=== PATIENT | female | born 1990 | race Caucasian/White ===

== ENCOUNTER → 2016-09-02 | Outpatient (REF) ==
--- NOTE | 2016-09-02 16:26 | REP ---
LUMBAR SPINE, THREE VIEWS: HISTORY: Degenerative disc disease. There is no acute fracture. The intervertebral discs are normal in height. There are 3 mm of grade 1 spondylolisthesis of L5 on S1. IMPRESSION: Degenerative change as described above. Signed by Angelo Velazquez MD 09/02/2016 04:32 P
== END ==
LOC: M SMT 14:05
PROVIDERS: ATTEND Internal Medicine
DX: M43.17 Spondylolisthesis, lumbosacral region (principal)

== ENCOUNTER → 2018-02-18 | Outpatient (REF) | payer OTHER | LOC: M LAB REF 18:36 | DX: J02.9 Acute pharyngitis, unspecified (principal) ==

== ENCOUNTER → 2019-01-01 | Outpatient (REF) | payer OTHER ==
[2019-01-01 18:38] LABS: BASO # 0.1 10^3/uL (0.0-0.2); BASO % 0.9 % (0.0-1.0); EOS # 0.2 10^3/uL (0.0-0.50); EOS % 2.6 % (0.0-3.0); HEMATOCRIT 44.1 % (36.0-47.0); HEMOGLOBIN 14.3 g/dl (12.0-15.5); LYMPH # 2.9 10^3/uL (1.5-6.5); LYMPH % 32.4 % (24.0-44.0); MEAN CORPUSCULAR HEMOGLOBIN 30.3 pg (27.0-33.0); MEAN CORPUSCULAR HGB CONC 32.4 g/dl (32.0-36.5); MEAN CORPUSCULAR VOLUME 93.4 fl (80.0-96.0); MONO # 0.8 10^3/uL (0.0-0.8); MONO % 8.4 % (0.0-5.0); NEUTROPHILS % 55.5 % (36.0-66.0); PLATELET COUNT, AUTOMATED 256 10^3/uL (150-450); RED BLOOD COUNT 4.72 10^6/uL (4.00-5.40)
[2019-01-01 18:52] LABS: FREE T4 0.79 NG/DL (0.76-1.46); THYROID STIMULATING HORMONE 2.56 uIU/ML (0.358-3.740)
== END ==
LOC: M SFHCLERA 14:47
PROVIDERS: ATTEND Nurse Practitioner Family
DX: Z86.2 Personal history of diseases of the blood and blood-forming organs and certain disorders involving the immune mechanism (principal); E03.9 Hypothyroidism, unspecified

== ENCOUNTER 2019-05-27 13:13 | Emergency (ER) | payer OTHER ==
[2019-05-27] MEDS ORDERED: OMEP-221 OR (13:36)
[2019-05-27] MEDS ORDERED: QUET5TAB OR (13:36)
[2019-05-27] MEDS ORDERED: SERT25TA21 OR (13:36)
[2019-05-27] MEDS ORDERED: TOPI100T9 OR (13:36)
[2019-05-27] MEDS ORDERED: CLON0.5T2 OR (13:36)
[2019-05-27] MEDS ORDERED: TRAZ-252 OR (13:36)
[2019-05-27] MEDS ORDERED: ARIP1TAB6 OR (13:36)
[2019-05-27] MEDS ORDERED: HYDR50TA70 OR (13:36)
[2019-05-27 14:29] LABS: HEMATOCRIT 44.2 % (36.0-47.0); HEMOGLOBIN 13.9 g/dl (12.0-15.5); MEAN CORPUSCULAR HGB CONC 31.4 g/dl (32.0-36.5); MEAN CORPUSCULAR VOLUME 92.3 fl (80.0-96.0); PLATELET COUNT, AUTOMATED 245 10^3/uL (150-450); RED BLOOD COUNT 4.79 10^6/uL (4.00-5.40); WHITE BLOOD COUNT 12.9 10^3/uL (4.0-10.0)
[2019-05-27 14:51] LABS: BLOOD UREA NITROGEN 10 MG/DL (7-18); CALCIUM LEVEL 8.4 MG/DL (8.5-10.1); CARBON DIOXIDE LEVEL 23 MEQ/L (21-32); CHLORIDE LEVEL 114 MEQ/L (98-107); CREATININE FOR GFR 0.75 MG/DL (0.55-1.30); GLOMERULAR FILTRATION RATE > 60.0 (>60); GLUCOSE, FASTING 87 MG/DL (70-100); POTASSIUM SERUM 4.5 MEQ/L (3.5-5.1); SODIUM LEVEL 143 MEQ/L (136-145)
[2019-05-27 14:58] LABS: HCG, SERUM QUALITATIVE NEGATIVE (NEGATIVE)
[2019-05-27] MEDS ORDERED: ISOVUE-370 76% 100ML VIAL (Q9967) As Ordered ONE (15:05)
[2019-05-27] MEDS ORDERED: KETOROLAC 30 MG/ML VIAL (J1885) IV ONE (15:15)
[2019-05-27] MEDS ORDERED: CYCL10TA PO (16:21)
[2019-05-27] MEDS ORDERED: IBUP-1022 PO (16:21)
[2019-05-27] MEDS ORDERED: MACR100C43 PO (16:21)
[2019-05-27 16:25] VITALS: BP 102/61
--- NOTE | 2019-05-28 07:30 | REP ---
CT CHEST WITH IV CONTRAST: TECHNIQUE: Axial contrast enhanced images from the thoracic inlet to the upper abdomen using 100 mL Isovue 370 intravenous contrast material with multiplanar reformations. Thoracic aorta is not dilated and is intact. There is no dissection. Heart is normal in size. There is no pleural or pericardial effusion. There is no mediastinal, hilar, or chest wall lymphadenopathy. There is no infiltrate or pneumothorax. The visualized osseous structures are intact. IMPRESSION: No acute pulmonary disease. Electronically Signed by Oswald Cordoba MD 05/28/2019 06:02 P
--- NOTE | 2019-05-28 07:35 | REP ---
CT ABDOMEN AND PELVIS WITH IV CONTRAST: TECHNIQUE: Axial contrast enhanced images from the lung bases to the pubic symphysis using 100 mL Isovue 370 intravenous contrast material with multiplanar reformations. The liver demonstrates a 4 cm enhancing mass inferiorly in the right lobe medial aspect. There is a central hypo-attenuating area. This most likely represents focal nodular hyperplasia. No other liver abnormality is seen. The gallbladder is mildly distended and grossly unremarkable. The spleen demonstrates a 6 mm cystic structure anteriorly. Adrenals are normal. The pancreas is unremarkable. The kidneys are unremarkable with no hydronephrosis. There is no abdominal aortic aneurysm. No adenopathy is seen. There is no free air or free fluid. There is no bowel wall thickening. No pelvic mass is seen. Follicle or collapsing cyst in the right ovary measures 1.9 cm in maximum diameter. Urinary bladder is minimally ascended and grossly unremarkable. There is spondylolysis of the L5 posterior elements. There is minimal anterior spondylolisthesis of L5 on S1. IMPRESSION: No acute post-traumatic abnormality. No acute fracture. Spondylolysis of L5 with minimal anterior grade 1 spondylolisthesis of L5 on S1. 4 cm liver mass with enhancement characteristics most consistent with focal nodular hyperplasia. Recommend further evaluation with MRI of the liver with and without contrast. Electronically Signed by Oswald Cordoba MD 05/28/2019 06:03 P
--- NOTE | 2019-05-29 08:51 | ED PDOC ---
Post-Departure Follow-Up certified letter sent to pt re formal read of ct abdd/p for fu Mitch Stone MD May 29, 2019 08:51
== END 2019-05-27 16:30 | disposition home or self-care (01) ==
LOC: EDBD 13:13 → M ED 13:13
DX: S20.219A Contusion of unspecified front wall of thorax, initial encounter (principal); V43.52XA Car driver injured in collision with other type car in traffic accident, initial encounter; Y92.9 Unspecified place or not applicable; Y93.9 Activity, unspecified; Y99.9 Unspecified external cause status; N39.0 Urinary tract infection, site not specified; F17.200 Nicotine dependence, unspecified, uncomplicated; M43.06 Spondylolysis, lumbar region; M43.17 Spondylolisthesis, lumbosacral region; R16.0 Hepatomegaly, not elsewhere classified; Z79.899 Other long term (current) drug therapy; Z88.0 Allergy status to penicillin; Z88.6 Allergy status to analgesic agent
CPT/HCPCS: 71260; 74177; 80048; 81001; 84703; 85027; 87086; 96374; 99284; J1885; Q9967

== ENCOUNTER → 2019-07-05 | Outpatient (CLI) | payer OTHER ==
[~2019-07-05] MED LIST: ARIP1TAB6 OR; CLON0.5T2 OR; CYCL10TA PO; HYDR50TA70 OR; IBUP-1022 PO; MACR100C43 PO; OMEP-221 OR; PROHANCE 279.3MG/ML 15ML VIAL (A9576) As Ordered ONE; PROHANCE 279.3MG/ML 5ML VIAL (A9576) As Ordered ONE; QUET5TAB OR; SERT25TA21 OR; TOPI100T9 OR; TRAZ-252 OR
--- NOTE | 2019-07-05 12:27 | REP ---
MRI abdomen and liver without and with IV contrast: History: Liver nodule. 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 Incidental finding on CT study abdomen and pelvis May 27, 2019. Technique: Axial and coronal T1 and T2-weighted scans include spin-echo, fast spin echo, diffusion, gradient echo, in and [id number], and dynamically acquired sequential post contrast images. The gadolinium enhancement dose is 17 mL of intravenous ProHance. MRI findings: The mass identified by CT scanning in the quadrate lobe of the liver is again seen on MRI. It is isointense to liver parenchyma on T2 and essentially isointense on T1-weighted precontrast images. It measures 3.5 cm in greatest diameter. There is a somewhat radial spoke wheel pattern of contrast enhancement in the lesion on early arterial phase dynamic postcontrast images. There is a central scar like area of decreased enhancement on initial postcontrast images. This central scar demonstrates enhancement on delayed postcontrast images. There is some T2 hyperintensity in the central scar on precontrast T2-weighted scans as well. No other focal liver lesion is seen. No abnormality is noted in the spleen. Kidneys are unremarkable. No filling defect is seen in the gallbladder. No pancreatic lesion is observed. Impression: Solitary 3.5 cm hypervascular liver mass with delayed enhancement of the central scar. This is felt to be consistent with focal nodular hyperplasia. Followup via sonography could be performed to document stability in size, 6-9 months. Electronically Signed by Crow Jimenez MD 07/05/2019 05:04 P
== END ==
LOC: M RAD 09:33
PROVIDERS: ATTEND Nurse Practitioner Family
DX: K76.89 Other specified diseases of liver (principal)
CPT/HCPCS: 74183; A9576

== ENCOUNTER 2020-02-04 01:15 | Emergency (ER) | payer OTHER ==
[~2020-02-04] VITALS: Ht 149.9 cm; Wt 95.7 kg
[~2020-02-04 01:15] MED LIST changes: +CYCL-707 PO; -CYCL10TA PO; -PROHANCE 279.3MG/ML 15ML VIAL (A9576) As Ordered ONE; -PROHANCE 279.3MG/ML 5ML VIAL (A9576) As Ordered ONE
[2020-02-04] MEDS ORDERED: RISP0.253 (01:30)
[2020-02-04] MEDS ORDERED: PRED20TA PO (02:11)
[2020-02-04] MEDS ORDERED: PROAAER10 INH (02:11)
[2020-02-04] MEDS ORDERED: predniSONE 20 MG TAB PO ONE (02:15)
[2020-02-04 02:28] VITALS: BP 115/74
== END 2020-02-04 02:38 | disposition home or self-care (01) ==
LOC: M ED 01:15
DX: J20.9 Acute bronchitis, unspecified (principal); K21.9 Gastro-esophageal reflux disease without esophagitis; F31.9 Bipolar disorder, unspecified; F17.200 Nicotine dependence, unspecified, uncomplicated; Z79.899 Other long term (current) drug therapy; Z88.0 Allergy status to penicillin; Z88.6 Allergy status to analgesic agent

== ENCOUNTER → 2020-07-23 | Outpatient (REF) | payer OTHER ==
[~2020-07-23] MED LIST changes: +PRED20TA PO; +PROAAER10 INH; +QUET50TA3 OR; -QUET5TAB OR; +RISP0.253
[2020-07-23 18:52] LABS: HEMATOCRIT 39.3 % (36.0-47.0); HEMOGLOBIN 12.8 g/dl (12.0-15.5); MEAN CORPUSCULAR HEMOGLOBIN 29.2 pg (27.0-33.0); MEAN CORPUSCULAR HGB CONC 32.6 g/dl (32.0-36.5); MEAN CORPUSCULAR VOLUME 89.7 fl (80.0-96.0); PLATELET COUNT, AUTOMATED 287 10^3/uL (150-450); RED BLOOD COUNT 4.38 10^6/uL (4.00-5.40); WHITE BLOOD COUNT 10.1 10^3/uL (4.0-10.0)
[2020-07-23 20:00] LABS: HEMOGLOBIN A1c 5.1 %
[2020-07-23 20:10] LABS: HCG, SERUM QUANTITATIVE 6013 MIU/ML; HIV 1&2 SCREEN CENTAUR NEGATIVE (NEGATIVE)
== END ==
LOC: M LAB REF 16:22
PROVIDERS: ATTEND Obstetrics & Gynecology
DX: O36.80X0 Pregnancy with inconclusive fetal viability, not applicable or unspecified (principal)

== ENCOUNTER 2020-08-01 20:48 | Emergency (ER) | payer OTHER ==
[~2020-08-01] VITALS: Ht 149.9 cm; Wt 104.2 kg
[~2020-08-01 20:48] MED LIST changes: -MULTTAB20 PO; -antiemetic PO
[2020-08-01] MEDS ORDERED: antiemetic PO (20:58)
[2020-08-01] MEDS ORDERED: MULTTAB20 PO (20:58)
--- NOTE | 2020-08-01 22:04 | REPVR ---
PROCEDURE INFORMATION: Exam: US First Trimester, Transabdominal Exam date and time: 08/01/2020 9:46 PM Age: 29 years old Clinical indication: Lmp or gestational age (in weeks): 06/19/2020; Other: Vaginal bleeding; ; Additional info: Vaginal bleeding, 6 weeks TECHNIQUE: Imaging protocol: Real-time transabdominal obstetrical ultrasound of the maternal pelvis and a first trimester , less than 14 weeks 0 days, with image documentation. COMPARISON: No relevant prior studies available. FINDINGS: Gestation: The endometrium is mildly heterogeneous and measures 14 mm with no gestational sac. MATERNAL: Uterus: The uterus measures 9.3 cm in its cephalocaudad dimension and 4.1 x 6.0 cm in its AP and lateral dimensions transabdominal. The uterus measures 9.0 cm in its cephalocaudad dimension and 4.8 x 5.3 cm in its AP and lateral dimensions transvaginal. Cervix: Unremarkable. Right adnexa: The right ovary measures 1.6 x 2.5 x 0.9 cm and demonstrates normal arterial and venous blood flow. Left adnexa: The left ovary measures 3.8 x 1.7 x 3.0 cm and demonstrates arterial and venous blood flow and a small complex cyst measuring 2.2 x 1.9 x 2.0 mm. Intraperitoneal space: No intraperitoneal free fluid. IMPRESSION: 1. No intrauterine gestational sac is identified. Findings may reflect recent spontaneous AB. Ectopic is not excluded. Serial beta hCG levels may be of benefit for further evaluation. 2. Small complex left ovarian cyst measuring 2.2 x 1.9 x 2.0 cm. Electronically signed by: Gurmeet Badillo On 08/01/2020 22:04:11 PM
[2020-08-01 22:12] LABS: BASO # 0.1 10^3/uL (0.0-0.2); BASO % 0.6 % (0.0-1.0); EOS # 0.4 10^3/uL (0.0-0.5); HEMATOCRIT 40.4 % (36.0-47.0); HEMOGLOBIN 12.9 g/dl (12.0-15.5); LYMPH # 3.8 10^3/uL (1.5-5.0); LYMPH % 30.8 % (24.0-44.0); MEAN CORPUSCULAR HEMOGLOBIN 28.4 pg (27.0-33.0); MEAN CORPUSCULAR HGB CONC 31.9 g/dl (32.0-36.5); MEAN CORPUSCULAR VOLUME 88.8 fl (80.0-96.0); MONO # 0.7 10^3/uL (0.0-0.8); MONO % 5.6 % (2.0-8.0); NEUTROPHILS # 7.4 10^3/uL (1.5-8.5); NEUTROPHILS % 59.6 % (36.0-66.0); PLATELET COUNT, AUTOMATED 336 10^3/uL (150-450); RED BLOOD COUNT 4.55 10^6/uL (4.00-5.40); WHITE BLOOD COUNT 12.4 10^3/uL (4.0-10.0)
[2020-08-01] MEDS ORDERED: NORCO, ANEXSIA 5/325MG TABLET (HYDROcodone/ACETAMINOPHEN) PO ONE (22:15)
[2020-08-01 22:55] LABS: BLOOD UREA NITROGEN 7 MG/DL (7-18); CALCIUM LEVEL 8.7 MG/DL (8.5-10.1); CARBON DIOXIDE LEVEL 29 MEQ/L (21-32); CHLORIDE LEVEL 107 MEQ/L (98-107); CREATININE FOR GFR 0.54 MG/DL (0.55-1.30); GLOMERULAR FILTRATION RATE > 60.0 (>60); GLUCOSE, FASTING 95 MG/DL (70-100); HCG, SERUM QUANTITATIVE 30401 MIU/ML; SODIUM LEVEL 140 MEQ/L (136-145)
[2020-08-02] MEDS ORDERED: NORCO 5/325MG TABLET (BULK FOR ED) PO ONE
[2020-08-02 00:13] VITALS: BP 116/66
== END 2020-08-02 00:26 | disposition home or self-care (01) ==
LOC: M ED 20:48
DX: O03.9 Complete or unspecified spontaneous abortion without complication (principal); N83.292 Other ovarian cyst, left side; E66.9 Obesity, unspecified; E03.9 Hypothyroidism, unspecified; F41.9 Anxiety disorder, unspecified; F32.9 Major depressive disorder, single episode, unspecified; F17.200 Nicotine dependence, unspecified, uncomplicated; Z79.899 Other long term (current) drug therapy; Z88.0 Allergy status to penicillin; Z88.1 Allergy status to other antibiotic agents; Z88.6 Allergy status to analgesic agent

== ENCOUNTER → 2020-08-01 | Outpatient (REF) | payer OTHER ==
[~2020-08-01] MED LIST changes: +MULTTAB20 PO; +antiemetic PO
== END ==
LOC: M LAB REF 11:24
PROVIDERS: ATTEND Advanced Practice Midwife
DX: O36.80X0 Pregnancy with inconclusive fetal viability, not applicable or unspecified (principal)

== ENCOUNTER → 2020-08-07 | Outpatient (REF) | payer OTHER ==
[~2020-08-07] MED LIST changes: +MULTTAB20 PO; +antiemetic PO
== END ==
LOC: M LAB REF 16:20
PROVIDERS: ATTEND Obstetrics & Gynecology
DX: O02.1 Missed abortion (principal)

== ENCOUNTER 2020-12-06 09:42 | Emergency (ER) | payer OTHER ==
[~2020-12-06] VITALS: Ht 149.9 cm; Wt 100.0 kg
[2020-12-06 10:29] LABS: APPEARANCE, URINE HAZY (CLEAR); BACTERIA, URINE AUTO NEGATIVE (NEGATIVE); BILIRUBIN, URINE AUTO NEGATIVE (NEGATIVE); BLOOD, URINE BLOOD 3+ (NEGATIVE); COLOR, URINE YELLOW (YELLOW); GLUCOSE, URINE (UA) AUTO NEGATIVE (NEGATIVE); KETONE, URINE AUTO NEGATIVE (NEGATIVE); LEUKOCYTE ESTERASE, URINE AUTO NEGATIVE (NEGATIVE); MUCUS, URINE SMALL (NEGATIVE); NITRITE, URINE AUTO NEGATIVE (NEGATIVE); PROTEIN, URINE AUTO NEGATIVE (NEGATIVE); RBC, URINE AUTO 15 /HPF (0-3); SPECIFIC GRAVITY URINE AUTO 1.019 (1.002-1.035); SQUAMOUS EPITHELIAL CELL UR AU 2 /HPF (0-6); WBC, URINE AUTO 2 /HPF (0-3)
[2020-12-06 10:54] LABS: BASO # 0.1 10^3/uL (0.0-0.2); BASO % 0.5 % (0.0-1.0); EOS # 0.3 10^3/uL (0.0-0.5); EOS % 3.2 % (0.0-3.0); HEMATOCRIT 40.9 % (36.0-47.0); HEMOGLOBIN 12.9 g/dl (12.0-15.5); LYMPH # 3.2 10^3/uL (1.5-5.0); LYMPH % 32.6 % (24.0-44.0); MEAN CORPUSCULAR HEMOGLOBIN 26.4 pg (27.0-33.0); MEAN CORPUSCULAR HGB CONC 31.5 g/dl (32.0-36.5); MEAN CORPUSCULAR VOLUME 83.6 fl (80.0-96.0); MONO # 0.7 10^3/uL (0.0-0.8); MONO % 7.3 % (2.0-8.0); NEUTROPHILS # 5.5 10^3/uL (1.5-8.5); NEUTROPHILS % 56.2 % (36.0-66.0); PLATELET COUNT, AUTOMATED 323 10^3/uL (150-450); RED BLOOD COUNT 4.89 10^6/uL (4.00-5.40); WHITE BLOOD COUNT 9.8 10^3/uL (4.0-10.0)
[2020-12-06] MEDS ORDERED: ACETAMINOPHEN TAB 650MG DOSE (2X325MG) PO ONE (11:10)
--- NOTE | 2020-12-06 11:30 | REP ---
INDICATION: VAGINAL BLEEDING. COMPARISON: None. TECHNIQUE: Transabdominal and transvaginal scanning. FINDINGS: Scanning demonstrates a normal-sized empty uterus with dimensions of 6.8 x 4.1 x 5.2 cm. Endometrial stripe is 0.8 cm thick. No intrauterine gestational sac is seen. No free fluid is noted. Normal ovaries are seen bilaterally. Right ovarian dimensions are 2.3 x 2.0 x 2.0 cm. Left ovary measures 2.8 x 1.6 x 2.3 cm. No adnexal mass or cyst is seen. IMPRESSION: Morphologically normal study. Empty uterus. Clinical and possibly sonographic follow-up is advised. Nonspecific findings in early . <Electronically signed by Roni Jimenez > 12/06/20 112
[2020-12-06 12:22] LABS: GC DNA AMPLIFICATION NEGATIVE (NEGATIVE)
[2020-12-06 13:15] VITALS: BP 120/78
== END 2020-12-06 13:16 | disposition home or self-care (01) ==
LOC: M ED 09:42
DX: O20.8 Other hemorrhage in early pregnancy (principal); Z87.59 Personal history of other complications of pregnancy, childbirth and the puerperium; O99.330 Smoking (tobacco) complicating pregnancy, unspecified trimester; Z79.899 Other long term (current) drug therapy; Z88.0 Allergy status to penicillin; Z88.6 Allergy status to analgesic agent

== ENCOUNTER → 2020-12-19 | Outpatient (CLI) | payer OTHER | LOC: M PLALAB 12:15 | PROVIDERS: ATTEND Obstetrics & Gynecology | DX: N96 Recurrent pregnancy loss (principal) ==

== ENCOUNTER 2021-01-29 18:47 | Emergency (ER) | payer OTHER ==
[~2021-01-29] VITALS: Ht 149.9 cm; Wt 101.1 kg
[~2021-01-29 18:47] MED LIST changes: -QUET50TA3 OR; +QUET50TA4 OR
[2021-01-29 18:48] VITALS: BP 120/71
== END 2021-01-29 19:09 | disposition left against medical advice (07) ==
LOC: M ED 18:47
DX: Z53.21 Procedure and treatment not carried out due to patient leaving prior to being seen by health care provider (principal)

== ENCOUNTER → 2021-01-30 | Outpatient (REF) | payer OTHER | LOC: M LAB REF 11:55 | PROVIDERS: ATTEND Physician Assistant Medical | DX: J06.9 Acute upper respiratory infection, unspecified (principal); J02.9 Acute pharyngitis, unspecified; Z20.828 Contact with and (suspected) exposure to other viral communicable diseases ==

== ENCOUNTER → 2021-07-02 | Outpatient (CLI) | payer OTHER ==
[~2021-07-02] MED LIST changes: -OMEP-221 OR; +OMEP40CA5 OR
[2021-07-02 17:24] LABS: HEMATOCRIT 40.2 % (36.0-47.0); HEMOGLOBIN 13.1 g/dl (12.0-15.5); MEAN CORPUSCULAR HEMOGLOBIN 28.9 pg (27.0-33.0); MEAN CORPUSCULAR HGB CONC 32.6 g/dl (32.0-36.5); MEAN CORPUSCULAR VOLUME 88.7 fl (80.0-96.0); PLATELET COUNT, AUTOMATED 284 10^3/uL (150-450); RED BLOOD COUNT 4.53 10^6/uL (4.00-5.40); WHITE BLOOD COUNT 14.2 10^3/uL (4.0-10.0)
[2021-07-02 18:10] LABS: FREE T4 1.11 NG/DL (0.76-1.46)
[2021-07-02 19:11] LABS: GC DNA AMPLIFICATION NEGATIVE (NEGATIVE); HEMOGLOBIN A1c 5.1 %
[2021-07-02 19:55] LABS: HEPATITIS C VIRUS ABY INDEX 0.1 INDEX (<0.8)
[2021-07-02 19:56] LABS: HIV 1&2 SCREEN CENTAUR NEGATIVE (NEGATIVE)
== END ==
LOC: M PLALAB 14:39
PROVIDERS: ATTEND Advanced Practice Midwife
DX: Z34.80 Encounter for supervision of other normal pregnancy, unspecified trimester (principal); Z3A.00 Weeks of gestation of pregnancy not specified

== ENCOUNTER → 2021-07-16 | Outpatient (CLI) | payer OTHER | LOC: M WHC 11:02 | PROVIDERS: ATTEND Advanced Practice Midwife | DX: Z36.89 Encounter for other specified antenatal screening (principal); Z3A.00 Weeks of gestation of pregnancy not specified ==

== ENCOUNTER → 2021-08-12 | Outpatient (CLI) | payer OTHER | LOC: M WHC 09:13 | PROVIDERS: ATTEND Obstetrics & Gynecology | DX: Z34.92 Encounter for supervision of normal pregnancy, unspecified, second trimester (principal); Z36.89 Encounter for other specified antenatal screening; Z3A.19 19 weeks gestation of pregnancy ==

== ENCOUNTER 2021-09-15 18:47 | Outpatient (CLI) | payer OTHER ==
[~2021-09-15] VITALS: Ht 149.9 cm; Wt 102.1 kg
[2021-09-15 19:06] VITALS: BP 109/57
[2021-09-15] MEDS ORDERED: HOME MED LIST COMPLETE! XX SCH (19:20)
[2021-09-15 19:45] VITALS: BP 106/57
== END 2021-09-15 20:06 | disposition home or self-care (01) ==
LOC: M LDO 18:47
PROVIDERS: ATTEND Specialist
DX: O26.892 Other specified pregnancy related conditions, second trimester (principal); N89.8 Other specified noninflammatory disorders of vagina; Z3A.23 23 weeks gestation of pregnancy

== ENCOUNTER → 2021-09-18 | Outpatient (REF) | payer OTHER | LOC: M PLALAB 12:14 | PROVIDERS: ATTEND Advanced Practice Midwife | DX: Z34.92 Encounter for supervision of normal pregnancy, unspecified, second trimester (principal); Z3A.00 Weeks of gestation of pregnancy not specified; Z53.8 Procedure and treatment not carried out for other reasons ==

== ENCOUNTER → 2021-09-30 | Outpatient (CLI) | payer OTHER ==
[2021-09-30 14:18] LABS: HEMATOCRIT 35.6 % (36.0-47.0); HEMOGLOBIN 11.7 g/dl (12.0-15.5); MEAN CORPUSCULAR HEMOGLOBIN 30.2 pg (27.0-33.0); MEAN CORPUSCULAR HGB CONC 32.9 g/dl (32.0-36.5); PLATELET COUNT, AUTOMATED 296 10^3/uL (150-450); RED BLOOD COUNT 3.87 10^6/uL (4.00-5.40); WHITE BLOOD COUNT 13.9 10^3/uL (4.0-10.0)
== END ==
LOC: M PLALAB 09:37
PROVIDERS: ATTEND Advanced Practice Midwife
DX: Z34.92 Encounter for supervision of normal pregnancy, unspecified, second trimester (principal); Z36.89 Encounter for other specified antenatal screening

== ENCOUNTER → 2021-12-10 | Outpatient (REF) | payer OTHER | LOC: M SFHCWAGY 16:50 | PROVIDERS: ATTEND Advanced Practice Midwife | DX: O99.333 Smoking (tobacco) complicating pregnancy, third trimester (principal); F17.200 Nicotine dependence, unspecified, uncomplicated; Z36.85 Encounter for antenatal screening for Streptococcus B ==

== ENCOUNTER 2021-12-27 03:11 | Outpatient (CLI) | payer OTHER ==
[~2021-12-27] VITALS: Ht 149.9 cm; Wt 103.0 kg
[2021-12-27 03:44] VITALS: BP 114/74
== END 2021-12-27 08:11 | disposition home or self-care (01) ==
LOC: M LDO 03:11
PROVIDERS: ATTEND Obstetrics & Gynecology
DX: O47.1 False labor at or after 37 completed weeks of gestation (principal); Z3A.38 38 weeks gestation of pregnancy

== ENCOUNTER 2022-01-09 22:23 | Inpatient (IN) | payer OTHER ==
[~2022-01-09] VITALS: Ht 149.9 cm; Wt 104.9 kg
[2022-01-09] MEDS ORDERED: LACTATED RINGER'S 1000 ML IV STA (22:30)
[2022-01-09] MEDS ORDERED: LR 1,000 ML IV SCH (22:30)
[2022-01-09] MEDS ORDERED: miSOPROStol 50MCG 1/2 TABLET PO PRN (22:30)
[2022-01-09 22:45] VITALS: BP 120/81
[2022-01-10] VITALS (17 sets, daily range): BP systolic 112–147; BP diastolic 58–92
[2022-01-10 00:24] LABS: HEMATOCRIT 32.7 % (36.0-47.0); HEMOGLOBIN 10.7 g/dl (12.0-15.5); MEAN CORPUSCULAR HEMOGLOBIN 27.2 pg (27.0-33.0); MEAN CORPUSCULAR HGB CONC 32.7 g/dl (32.0-36.5); MEAN CORPUSCULAR VOLUME 83.2 fl (80.0-96.0); PLATELET COUNT, AUTOMATED 307 10^3/uL (150-450); RED BLOOD COUNT 3.93 10^6/uL (4.00-5.40); WHITE BLOOD COUNT 14.6 10^3/uL (4.0-10.0)
[2022-01-10] MEDS ORDERED: ePHEDrine SULFATE 25 MG/5 ML(5MG/ML) SYRINGE IVP PRN ×2 (01:45→02:10)
[2022-01-10] MEDS ORDERED: NALOXONE INJ 0.4MG/1ML VIAL (J2310 PER 1MG) IV PRN ×2 (01:45→02:10)
[2022-01-10] MEDS ORDERED: EPIDURAL/PCA KEYS XX PRN ×2 (01:45→02:10)
[2022-01-10] MEDS ORDERED: LR 500 ML IV PRN ×2 (01:45→02:10)
[2022-01-10] MEDS ORDERED: ONDANSETRON 4MG 2ML VIAL IV PRN ×2 (01:45→02:10)
[2022-01-10] MEDS ORDERED: diphenhydrAMINE 50MG/ML VIAL (J1200) IV PRN ×2 (01:45→02:10)
[2022-01-10] MEDS ORDERED: REFLB XX ONE (01:46)
[2022-01-10] MEDS ORDERED: FENTANYL 2MCG/ML ROPIVACAINE 0.2% IN 0.9% NACL 100ML IVBAG As Ordered ONE (01:47)
[2022-01-10] MEDS ORDERED: FENTANYL/ROPIVACAINE/NACL BAG 100 ML EPIDURAL SCH (02:10)
[2022-01-10] MEDS ORDERED: OXYTOCIN 30 UNITS IN 0.9% NaCl 500ML IV BAG (J2590) As Ordered ONE (02:44)
[2022-01-10] MEDS ORDERED: ACETAMINOPHEN TAB 650MG DOSE (2X325MG) PO PRN (03:50)
[2022-01-10] MEDS ORDERED: IBUPROFEN 600MG TAB PO PRN (03:50)
[2022-01-10] MEDS ORDERED: RHOGAM 300 MCG (1500 IU) INJ (J2790) IM SCH (03:50)
[2022-01-10] MEDS ORDERED: IBUPROFEN 800 MG TAB PO PRN (03:50)
[2022-01-10] MEDS ORDERED: DIBUCAINE 1% OINTMENT 30GM TOP PRN (03:50)
[2022-01-10] MEDS ORDERED: OXYTOCIN DRIP 30 UNITS in IV 1 EA IV SCH (03:50)
[2022-01-10] MEDS ORDERED: METHYLERGONOVINE MALEATE 0.2 MG TAB PO PRN (03:50)
[2022-01-10] MEDS ORDERED: DOCUSATE SODIUM 100MG CAPSULE PO PRN (03:50)
[2022-01-10 03:56] LABS: CORD GAS ABE A -4.1; CORD GAS HCO3 A 22.4 MEQ/L; CORD GAS HCO3 V 23.1 MEQ/L; CORD GAS O2 SAT A 59.9 %; CORD GAS O2 SAT V 51.9 %; CORD GAS PCO2 V 49.8 mmHg; CORD GAS PH A 7.305 UNITS; CORD GAS PH V 7.285 UNITS; CORD GAS PO2 A 22.7 mmHg; CORD GAS SBC A 20.1 MEQ/L; CORD GAS TCO2 A 23.8 MEQ/L; CORD GAS TCO2 V 24.7 MEQ/L
[2022-01-10] MEDS: ACETAMINOPHEN 500 MG TAB PO PRN ×2 (07:49→15:30)
[2022-01-10] MEDS ORDERED: PRENATAL VITAMINS CHEWABLE TABLET PO SCH (09:00)
[2022-01-10] MEDS ORDERED: HOME MED LIST COMPLETE! XX SCH (17:15)
[2022-01-12] MEDS ORDERED: MEASLES,MUMPS,RUBELLA VACCINE INJ (MMR-II) (90707) SC.IMMUN ONE (09:00)
== END 2022-01-10 23:15 | disposition home or self-care (01) | DRG 560 ==
LOC: M LDI 22:23 → M OBS 01-10 06:09
PROVIDERS: ADMIT Obstetrics & Gynecology; ATTEND Obstetrics & Gynecology
PROC: 3E0P7GC Introduction of Other Therapeutic Substance into Female Reproductive, Via Natural or Artificial Opening (ICD-10-PCS; 2022-01-09)
PROC: 10E0XZZ Delivery of Products of Conception, External Approach (ICD-10-PCS; principal; 2022-01-10)
DX: O69.1XX0 Labor and delivery complicated by cord around neck, with compression, not applicable or unspecified (principal); Z3A.40 40 weeks gestation of pregnancy; Z37.0 Single live birth

== ENCOUNTER → 2022-06-30 | Outpatient (CLI) | payer OTHER ==
[2022-06-30 13:35] LABS: HEMATOCRIT 38.5 % (36.0-47.0); HEMOGLOBIN 12.1 g/dl (12.0-15.5); MEAN CORPUSCULAR HGB CONC 31.4 g/dl (32.0-36.5); MEAN CORPUSCULAR VOLUME 82.6 fl (80.0-96.0); PLATELET COUNT, AUTOMATED 265 10^3/uL (150-450); RED BLOOD COUNT 4.66 10^6/uL (4.00-5.40); WHITE BLOOD COUNT 7.5 10^3/uL (4.0-10.0)
[2022-06-30 16:06] LABS: GC DNA AMPLIFICATION NEGATIVE (NEGATIVE)
[2022-06-30 19:53] LABS: HEPATITIS C VIRUS ABY INDEX < 0.0 INDEX (<0.8); HIV 1&2 SCREEN CENTAUR NEGATIVE (NEGATIVE)
== END ==
LOC: M PLALAB 10:00
PROVIDERS: ATTEND Advanced Practice Midwife
DX: Z34.81 Encounter for supervision of other normal pregnancy, first trimester (principal)

== ENCOUNTER → 2022-08-18 | Outpatient (CLI) | payer OTHER | LOC: M WHC 10:17 | PROVIDERS: ATTEND Specialist | DX: O32.2XX0 Maternal care for transverse and oblique lie, not applicable or unspecified (principal); Z36.89 Encounter for other specified antenatal screening; Z3A.18 18 weeks gestation of pregnancy ==

== ENCOUNTER → 2022-11-10 | Outpatient (CLI) | payer OTHER ==
[2022-11-10 17:04] LABS: HEMATOCRIT 35.1 % (36.0-47.0); HEMOGLOBIN 11.4 g/dl (12.0-15.5); MEAN CORPUSCULAR HEMOGLOBIN 28.6 pg (27.0-33.0); MEAN CORPUSCULAR HGB CONC 32.5 g/dl (32.0-36.5); MEAN CORPUSCULAR VOLUME 88.2 fl (80.0-96.0); PLATELET COUNT, AUTOMATED 309 10^3/uL (150-450); RED BLOOD COUNT 3.98 10^6/uL (4.00-5.40); WHITE BLOOD COUNT 16.1 10^3/uL (4.0-10.0)
[2022-11-10 18:58] LABS: GC DNA AMPLIFICATION NEGATIVE (NEGATIVE)
== END ==
LOC: M PLALAB 13:14
PROVIDERS: ATTEND Obstetrics & Gynecology
DX: Z34.92 Encounter for supervision of normal pregnancy, unspecified, second trimester (principal)

== ENCOUNTER 2023-01-09 13:43 | Outpatient (CLI) | payer OTHER ==
[~2023-01-09] VITALS: Ht 149.9 cm; Wt 102.9 kg
[2023-01-09 14:06] VITALS: BP 109/61
[2023-01-09] MEDS ORDERED: HOME MED LIST COMPLETE! XX SCH (14:10)
[2023-01-09] MEDS ORDERED: LR 1,000 ML IV SCH (14:40)
[2023-01-09] MEDS ORDERED: OXYTOCIN DRIP 30 UNITS in IV 1 EA IV SCH (14:40)
[2023-01-11] MEDS ORDERED: ACET-683 PO (17:55)
== END 2023-01-09 15:17 | disposition home or self-care (01) ==
LOC: M LDO 13:43
PROVIDERS: ATTEND Obstetrics & Gynecology
DX: O47.1 False labor at or after 37 completed weeks of gestation (principal); Z3A.39 39 weeks gestation of pregnancy; O99.333 Smoking (tobacco) complicating pregnancy, third trimester; F17.210 Nicotine dependence, cigarettes, uncomplicated
CPT/HCPCS: 59025; 96374; G0463

== ENCOUNTER → 2023-07-14 | Outpatient (CLI) | payer OTHER ==
[~2023-07-14] MED LIST changes: +ACET-683 PO
== END ==
LOC: M WHC 11:19
PROVIDERS: ATTEND Advanced Practice Midwife
DX: Z34.82 Encounter for supervision of other normal pregnancy, second trimester (principal)

== ENCOUNTER 2023-08-31 15:26 | Emergency (ER) | payer OTHER | END 2023-08-31 18:20 | disposition admitted as inpatient to this hospital (09) | LOC: M ED 15:26 | DX: Z53.21 Procedure and treatment not carried out due to patient leaving prior to being seen by health care provider (principal) ==

== ENCOUNTER 2023-08-31 15:32 | Outpatient (CLI) | payer OTHER ==
[~2023-08-31] VITALS: Ht 149.9 cm; Wt 94.6 kg
[2023-08-31 15:45] VITALS: BP 110/60
[2023-08-31 18:25] VITALS: BP 107/56
== END 2023-08-31 19:01 | disposition home or self-care (01) ==
LOC: M LDO 15:32
PROVIDERS: ATTEND Obstetrics & Gynecology
DX: Z53.21 Procedure and treatment not carried out due to patient leaving prior to being seen by health care provider (principal)
CPT/HCPCS: 59025; G0463

== ENCOUNTER → 2023-09-12 | Outpatient (CLI) | payer OTHER ==
[2023-09-12 13:24] LABS: HEMOGLOBIN 11.3 g/dl (12.0-15.5); MEAN CORPUSCULAR HEMOGLOBIN 28.5 pg (27.0-33.0); MEAN CORPUSCULAR HGB CONC 32.3 g/dl (32.0-36.5); MEAN CORPUSCULAR VOLUME 88.4 fl (80.0-96.0); PLATELET COUNT, AUTOMATED 295 10^3/uL (150-450); RED BLOOD COUNT 3.96 10^6/uL (4.00-5.40); WHITE BLOOD COUNT 9.3 10^3/uL (4.0-10.0)
[2023-09-12 13:49] LABS: FREE T4 0.97 NG/DL (0.89-1.76); THYROID STIMULATING HORMONE 3.682 uIU/ML (0.55-4.78)
[2023-09-12 14:20] LABS: HIV 1&2 SCREEN NEGATIVE (NEGATIVE)
[2023-09-12 14:28] LABS: HEPATITIS C VIRUS ABY INDEX < 0.02 INDEX (<0.8)
[2023-09-12 14:44] LABS: GC DNA AMPLIFICATION NEGATIVE (NEGATIVE)
== END ==
LOC: M PLALAB 09:20
PROVIDERS: ATTEND Advanced Practice Midwife
DX: Z34.82 Encounter for supervision of other normal pregnancy, second trimester (principal)

== ENCOUNTER → 2023-10-07 | Outpatient (CLI) | payer OTHER ==
[2023-10-07 13:13] LABS: HEMATOCRIT 34.7 % (36.0-47.0); HEMOGLOBIN 11.2 g/dl (12.0-15.5); MEAN CORPUSCULAR HEMOGLOBIN 28.6 pg (27.0-33.0); MEAN CORPUSCULAR HGB CONC 32.3 g/dl (32.0-36.5); MEAN CORPUSCULAR VOLUME 88.5 fl (80.0-96.0); PLATELET COUNT, AUTOMATED 298 10^3/uL (150-450); RED BLOOD COUNT 3.92 10^6/uL (4.00-5.40); WHITE BLOOD COUNT 9.9 10^3/uL (4.0-10.0)
[2023-10-07 13:38] LABS: THYROID STIMULATING HORMONE 3.547 uIU/ML (0.55-4.78)
[2023-10-07 14:04] LABS: GC DNA AMPLIFICATION NEGATIVE (NEGATIVE)
== END ==
LOC: M PLALAB 09:12
PROVIDERS: ATTEND Obstetrics & Gynecology
DX: O99.333 Smoking (tobacco) complicating pregnancy, third trimester (principal); Z3A.30 30 weeks gestation of pregnancy

== ENCOUNTER 2023-11-21 22:20 | Inpatient (IN) | payer OTHER ==
[~2023-11-21] VITALS: Ht 149.9 cm; Wt 98.8 kg
[2023-11-21 22:37] VITALS: BP 122/68
[2023-11-21] MEDS ORDERED: HOME MED LIST COMPLETE! XX SCH (22:40)
[2023-11-22] VITALS (21 sets, daily range): BP systolic 116–196; BP diastolic 56–108; O2SAT 98
[2023-11-22] MEDS: VANCOMYCIN HCL 1,000 MG, VIAL MATE ADAPTER 1 EACH in NS 250 ML IV SCH (00:22)
[2023-11-22] MEDS: LACTATED RINGER'S 1000 ML IV STA (00:22)
[2023-11-22 00:33] LABS: HEMATOCRIT 33.5 % (36.0-47.0); HEMOGLOBIN 11.1 g/dl (12.0-15.5); MEAN CORPUSCULAR HEMOGLOBIN 27.5 pg (27.0-33.0); MEAN CORPUSCULAR HGB CONC 33.1 g/dl (32.0-36.5); MEAN CORPUSCULAR VOLUME 83.1 fl (80.0-96.0); PLATELET COUNT, AUTOMATED 265 10^3/uL (150-450); RED BLOOD COUNT 4.03 10^6/uL (4.00-5.40); WHITE BLOOD COUNT 12.7 10^3/uL (4.0-10.0)
[2023-11-22] MEDS ORDERED: FENTANYL 2MCG/ML ROPIVACAINE 0.2% IN 0.9% NACL 100ML IVBAG As Ordered ONE (01:19)
[2023-11-22] MEDS ORDERED: EPIDURAL/PCA KEYS XX PRN (01:25)
[2023-11-22] MEDS ORDERED: diphenhydrAMINE 50MG/ML VIAL IV PRN (01:25)
[2023-11-22] MEDS ORDERED: LR 500 ML IV PRN (01:25)
[2023-11-22] MEDS ORDERED: NALOXONE INJ 0.4MG/1ML VIAL IV PRN (01:25)
[2023-11-22] MEDS ORDERED: ONDANSETRON 4MG 2ML VIAL IV PRN (01:25)
[2023-11-22] MEDS ORDERED: ePHEDrine SULFATE 25 MG/5 ML(5MG/ML) SYRINGE IVP PRN (01:25)
[2023-11-22] MEDS: FENTANYL/ROPIVACAINE/NACL BAG 100 ML EPIDURAL SCH (01:59)
[2023-11-22] MEDS ORDERED: OXYTOCIN INJ 10UNITS/ML 1ML VIAL IM PRN (02:30)
[2023-11-22] MEDS ORDERED: METHYLERGONOVINE MALEATE 0.2MG/ML 1ML VIAL IM PRN (02:30)
[2023-11-22] MEDS ORDERED: LIDOCAINE 1% MDV 20ML VIAL INFIL PRN (02:30)
[2023-11-22] MEDS ORDERED: CARBOPROST TROMETHAMINE 250 MCG/ML AMP IM PRN (02:30)
[2023-11-22] MEDS ORDERED: OXYTOCIN DRIP 30 UNITS in IV 1 EA IV PRN (02:30)
[2023-11-22] MEDS ORDERED: TRANEXAMIC ACID INJection 1,000 MG in NS 100 ML IV PRN (02:30)
[2023-11-22] MEDS ORDERED: ANUSOL HC CREAM 30GM TOP PRN (03:35)
[2023-11-22] MEDS ORDERED: MOM 30ML SUSPENSION UDC PO PRN (03:35)
[2023-11-22] MEDS ORDERED: DOCUSATE SODIUM 100MG CAPSULE PO PRN (03:35)
[2023-11-22] MEDS ORDERED: RHO(D) IMMUNE GLOBULIN/MALTOSE 500MCG(2500IU)/2.2ML VIAL (WINRHO) IM SCH (03:35)
[2023-11-22] MEDS ORDERED: DIBUCAINE 1% OINTMENT 30GM TOP PRN (03:35)
[2023-11-22 03:38] LABS: CORD GAS ABE A -6.4; CORD GAS ABE V -5.4; CORD GAS HCO3 A 22.5 MMOL/L; CORD GAS HCO3 V 21.9 MMOL/L; CORD GAS O2 SAT A 17.2 %; CORD GAS O2 SAT V 41.9 %; CORD GAS PCO2 V 48.5 mmHg; CORD GAS PH A 7.207 UNITS; CORD GAS PH V 7.272 UNITS; CORD GAS SBC A 17.4 MMOL/L; CORD GAS SBC V 18.7 MMOL/L; CORD GAS TCO2 A 24.3 MMOL/L; CORD GAS TCO2 V 23.4 MMOL/L
[2023-11-22] MEDS: OXYTOCIN DRIP 30 UNITS in IV 1 EA IV PRN (03:56)
[2023-11-22 04:11] LABS: HEPATITIS C VIRUS ABY INDEX < 0.02 INDEX (<0.8)
[2023-11-22] MEDS: ACETAMINOPHEN 500 MG TAB PO PRN (04:16)
[2023-11-22] MEDS: PRENATAL VITAMINS CHEWABLE TABLET PO SCH (09:18)
[2023-11-22] MEDS: ACETAMINOPHEN TAB 650MG DOSE (2X325MG) PO PRN (11:47)
[2023-11-23 06:00] VITALS: BP 96/53; O2SAT 98
[2023-11-23] MEDS ORDERED: ACET-683 PO (09:33)
[2023-11-23] MEDS: medroxyPROGESTERone ACET IM SUSP 150 MG/ML VIAL IM ONE (13:38)
[2023-11-23] MEDS: MEASLES,MUMPS,RUBELLA VACCINE INJ (MMR-II) SC.IMMUN ONE (13:38)
[2023-11-24] MEDS ORDERED: MEASLES,MUMPS,RUBELLA VACCINE INJ (MMR-II) SC.IMMUN ONE (09:00)
== END 2023-11-23 13:55 | disposition home or self-care (01) | DRG 560 ==
LOC: M LDO 22:20 → M LDI 11-22 00:55 → M OBS 11-22 06:45
PROVIDERS: ADMIT Advanced Practice Midwife; ATTEND Advanced Practice Midwife
PROC: 10E0XZZ Delivery of Products of Conception, External Approach (ICD-10-PCS; principal; 2023-11-22)
DX: O99.334 Smoking (tobacco) complicating childbirth (principal); F17.200 Nicotine dependence, unspecified, uncomplicated; Z37.0 Single live birth; Z3A.37 37 weeks gestation of pregnancy; Z88.0 Allergy status to penicillin; Z88.8 Allergy status to other drugs, medicaments and biological substances; O76 Abnormality in fetal heart rate and rhythm complicating labor and delivery

== ENCOUNTER → 2024-02-19 | Outpatient (REF) | payer OTHER, MEDICAID | LOC: M LAB REF 17:22 | PROVIDERS: ATTEND Physician Assistant Medical | DX: B34.9 Viral infection, unspecified (principal) ==

== ENCOUNTER 2024-04-10 04:55 | Emergency (ER) | payer OTHER | END 2024-04-10 05:05 | disposition left against medical advice (07) | LOC: EDBD 04:55 → M ED 04:55 | DX: Z53.21 Procedure and treatment not carried out due to patient leaving prior to being seen by health care provider (principal) ==

== ENCOUNTER 2024-08-03 17:40 | Emergency (ER) | payer OTHER ==
[~2024-08-03] VITALS: Ht 149.9 cm; Wt 97.1 kg
[2024-08-03] MEDS ORDERED: BENZ1LOZ9 PO (20:05)
[2024-08-03] MEDS: CEPACOL LOZENGE MT ONE (20:10)
[2024-08-03 20:18] VITALS: BP 121/68; TEMP 98.3; O2SAT 100
== END 2024-08-03 20:19 | disposition home or self-care (01) ==
LOC: M ED 17:40
DX: J02.9 Acute pharyngitis, unspecified (principal); K21.9 Gastro-esophageal reflux disease without esophagitis; F17.200 Nicotine dependence, unspecified, uncomplicated; Z88.0 Allergy status to penicillin; Z88.1 Allergy status to other antibiotic agents; Z88.6 Allergy status to analgesic agent; Z79.1 Long term (current) use of non-steroidal anti-inflammatories (NSAID); Z79.899 Other long term (current) drug therapy

== ENCOUNTER → 2025-01-24 | Outpatient (CLI) | payer OTHER ==
[~2025-01-24] MED LIST changes: +BENZ1LOZ9 PO; -IBUP-1022 PO; +IBUP600T42 PO; +TOPI-257 OR; -TOPI100T9 OR
== END ==
LOC: M WHC 10:21
PROVIDERS: ATTEND Obstetrics & Gynecology
DX: Z36.89 Encounter for other specified antenatal screening (principal); Z3A.24 24 weeks gestation of pregnancy

== ENCOUNTER → 2025-03-10 | Outpatient (CLI) | payer OTHER ==
[2025-03-10 10:11] LABS: PLATELET COUNT, AUTOMATED 273 10^3/uL (150-450)
[2025-03-10 10:40] LABS: FREE T4 0.95 NG/DL (0.89-1.76)
[2025-03-10 11:18] LABS: HEPATITIS C VIRUS ABY INDEX < 0.02 INDEX (<0.8); HIV 1&2 SCREEN NEGATIVE (NEGATIVE)
[2025-03-10 11:39] LABS: GC DNA AMPLIFICATION NEGATIVE (NEGATIVE)
[2025-03-10 12:01] LABS: Trichomonas vaginalis (AMP) NOT DETECTED (NEGATIVE)
== END ==
LOC: M LAB 09:04
PROVIDERS: ATTEND Obstetrics & Gynecology
DX: O99.280 Endocrine, nutritional and metabolic diseases complicating pregnancy, unspecified trimester (principal); E06.3 Autoimmune thyroiditis; Z3A.00 Weeks of gestation of pregnancy not specified

== ENCOUNTER → 2025-03-29 | Outpatient (CLI) | payer OTHER | LOC: M LAB 09:11 | PROVIDERS: ATTEND Obstetrics & Gynecology | DX: Z34.80 Encounter for supervision of other normal pregnancy, unspecified trimester (principal) ==

== ENCOUNTER → 2025-05-02 | Outpatient (REF) | payer OTHER | LOC: M LAB REF 16:43 | PROVIDERS: ATTEND Physician Assistant | DX: B34.9 Viral infection, unspecified (principal) ==

== ENCOUNTER 2025-05-04 17:22 | Emergency (ER) | payer OTHER | END 2025-05-04 17:25 | disposition admitted as inpatient to this hospital (09) | LOC: M ED 17:22 | DX: Z53.21 Procedure and treatment not carried out due to patient leaving prior to being seen by health care provider (principal) ==

== ENCOUNTER 2025-05-04 17:29 | Outpatient (CLI) | payer OTHER ==
[~2025-05-04] VITALS: Ht 149.9 cm; Wt 94.9 kg
[2025-05-04 17:49] VITALS: BP 121/77
[2025-05-04] MEDS ORDERED: HOME MED LIST COMPLETE! XX SCH (18:10)
[2025-05-04 18:26] VITALS: BP 113/74
[2025-05-09] MEDS ORDERED: ACET-907 PO (09:03)
== END 2025-05-04 19:09 | disposition home or self-care (01) ==
LOC: M LDO 17:29
PROVIDERS: ATTEND Specialist
DX: O47.1 False labor at or after 37 completed weeks of gestation (principal); O99.013 Anemia complicating pregnancy, third trimester; O99.283 Endocrine, nutritional and metabolic diseases complicating pregnancy, third trimester; D50.9 Iron deficiency anemia, unspecified; E06.3 Autoimmune thyroiditis; Z3A.38 38 weeks gestation of pregnancy
CPT/HCPCS: 59025; 87081; G0463

== ENCOUNTER 2025-05-07 08:05 | Emergency (ER) | payer OTHER ==
[2025-05-07] MEDS ORDERED: OMEP10CASR PO (08:23)
[2025-05-09] MEDS ORDERED: ACET-907 PO (09:03)
== END 2025-05-07 15:24 | disposition left against medical advice (07) ==
LOC: M ED 08:05
DX: Z53.21 Procedure and treatment not carried out due to patient leaving prior to being seen by health care provider (principal)